=== PATIENT | male | born 1930 | race Caucasian/White ===

== ENCOUNTER 2017-09-18 18:15 | Inpatient (IN) | payer MEDICARE, OTHER ==
[~2017-09-18] VITALS: Ht 177.8 cm; Wt 52.0 kg
[~2017-09-18 18:15] MED LIST: ADV50250 IH; AMIT100T2 PO; ASPI81TA30 PO; CLOP75TA33 PO; NICO1PAT36 TP; PANT40TA4 PO; SIMV20TA5 PO; ZOLP10TA5 PO
[2017-09-18 19:08] LABS: BASOPHILS % (AUTO) 0 % (0-1); EOSINOPHILS % (AUTO) 0 % (0-6); HEMATOCRIT 33.1 % (42.0-52.0); HEMOGLOBIN 10.9 g/dl (14.0-17.9); LYMPHOCYTES # (AUTO) 0.4 X10'3 (1.1-4.8); LYMPHOCYTES % (AUTO) 1.6 % (21-51); MEAN CORPUSCULAR HEMOGLOBIN 27.5 PG (27.0-31.0); MEAN CORPUSCULAR VOLUME 83.6 FL (78-98); MEAN PLATELET VOLUME 6.9 FL (7.4-10.4); MONOCYTES # (AUTO) 0.9 X10'3 (0-0.9); NEUTROPHILS # (AUTO) 21.8 X10'3 (1.8-7.7); NEUTROPHILS % (AUTO) 94.4 % (42-75); PLATELET COUNT 386 X10'3 (140-440); RED BLOOD COUNT 3.96 X10'6 (4.70-6.10); RED CELL DISTRIBUTION WIDTH 15.8 % (11.5-14.5); WHITE BLOOD COUNT 23.1 X10'3 (4.5-11.0)
[2017-09-18 19:18] LABS: ALANINE AMINOTRANSFERASE 17 U/L (12-78); ALBUMIN 3.1 G/DL (3.4-5.0); ALBUMIN/GLOBULIN RATIO 0.6 (1.1-1.5); ALKALINE PHOSPHATASE 164 IU/L (46-116); ANION GAP 10 (8-16); ASPARTATE AMINO TRANSFERASE 18 U/L (10-37); BILIRUBIN,TOTAL 0.3 MG/DL (0.1-1.0); BLOOD UREA NITROGEN 23 MG/DL (7-18); BUN/CREATININE RATIO 18.3 (5.4-32.0); CALCIUM 8.8 MG/DL (8.5-10.1); CHLORIDE 102 MMOL/L (99-107); CREATININE 1.26 MG/DL (0.60-1.10); GLUCOSE 150 MG/DL (70-104); POTASSIUM 4.4 MMOL/L (3.5-5.1); SODIUM 137 MMOL/L (135-145); TOTAL CARBON DIOXIDE 25.3 MMOL/L (24-32); TOTAL PROTEIN 8.2 G/DL (6.4-8.2); eGFR 54 ML/MIN
[2017-09-18] MEDS ORDERED: normal saline 1000ML IV soln IV ONE (19:35)
[2017-09-18] MEDS ORDERED: ipratropium/albuterol 3ml nebule NEB ONE (19:35)
[2017-09-18] MEDS ORDERED: azithromycin/NS 500mg/250ml 250 ML IV ONE (19:35)
[2017-09-18] MEDS ORDERED: piperacillin/tazo 3.375gm/50ml 50 ML IV ONE (19:40)
[2017-09-18] MEDS ORDERED: vancomycin/NS 1 GM ADD-VANTAGE 250 ML X 1 DOSE IV ONE (19:45)
[2017-09-18] MEDS ORDERED: mag hydrox/Alum hydrox/simeth 30ml oral suspension PO PRN (21:05)
[2017-09-18] MEDS ORDERED: ondansetron/PF 4mg/2ml inj IV PRN (21:05)
[2017-09-18] MEDS ORDERED: acetaminophen 325mg tablet PO PRN (21:05)
[2017-09-18] MEDS ORDERED: magnesium hydroxide 30ml (MOM) UD suspension PO PRN (21:05)
[2017-09-18 22:22] LABS: ANISOCYTOSIS 1+; PLATELET ESTIMATE NORMAL; TOTAL CELLS COUNTED 100
[2017-09-18 23:00] VITALS: BP 103/44
[2017-09-19] MEDS ORDERED: piperacillin/tazo 3.375gm/50ml 50 ML IV ONE (02:17)
[2017-09-19] MEDS: piperacillin/tazo 3.375gm/50ml 50 ML IV SCH ×3 (02:29→15:37)
[2017-09-19] MEDS: ipratropium/albuterol 3ml nebule NEB SCH ×4 (02:59→21:14)
[2017-09-19 03:00] VITALS: BP 100/52
[2017-09-19 06:00] VITALS: BP 91/45
[2017-09-19 06:16] LABS: BASOPHILS % (AUTO) 0 % (0-1); EOSINOPHILS % (AUTO) 0 % (0-6); HEMATOCRIT 25.5 % (42.0-52.0); HEMOGLOBIN 8.4 g/dl (14.0-17.9); LYMPHOCYTES # (AUTO) 1.8 X10'3 (1.1-4.8); LYMPHOCYTES % (AUTO) 6.5 % (21-51); MEAN CORPUSCULAR HEMOGLOBIN 27.6 PG (27.0-31.0); MEAN CORPUSCULAR HGB CONC 33.1 % (33.0-36.5); MEAN CORPUSCULAR VOLUME 83.4 FL (78-98); MEAN PLATELET VOLUME 7.1 FL (7.4-10.4); MONOCYTES # (AUTO) 1.2 X10'3 (0-0.9); MONOCYTES % (AUTO) 4.3 % (2-12); NEUTROPHILS # (AUTO) 24.4 X10'3 (1.8-7.7); NEUTROPHILS % (AUTO) 89.2 % (42-75); PLATELET COUNT 321 X10'3 (140-440); RED BLOOD COUNT 3.05 X10'6 (4.70-6.10); RED CELL DISTRIBUTION WIDTH 15.9 % (11.5-14.5)
[2017-09-19 06:19] LABS: WHITE BLOOD COUNT 27.3 X10'3 (4.5-11.0)
[2017-09-19 06:36] LABS: ANISOCYTOSIS 1+; PLATELET ESTIMATE NORMAL; TOTAL CELLS COUNTED 100
[2017-09-19 06:42] LABS: ALANINE AMINOTRANSFERASE 13 U/L (12-78); ALBUMIN 2.1 G/DL (3.4-5.0); ALBUMIN/GLOBULIN RATIO 0.6 (1.1-1.5); ALKALINE PHOSPHATASE 113 IU/L (46-116); ANION GAP 8 (8-16); ASPARTATE AMINO TRANSFERASE 13 U/L (10-37); BILIRUBIN,TOTAL 0.4 MG/DL (0.1-1.0); BLOOD UREA NITROGEN 19 MG/DL (7-18); CALCIUM 8.1 MG/DL (8.5-10.1); CHLORIDE 109 MMOL/L (99-107); CREATININE 1.12 MG/DL (0.60-1.10); GLUCOSE 113 MG/DL (70-104); MAGNESIUM 1.9 MG/DL (1.5-2.4); PHOSPHORUS 3.4 MG/DL (2.3-4.5); POTASSIUM 4.4 MMOL/L (3.5-5.1); SODIUM 142 MMOL/L (135-145); TOTAL CARBON DIOXIDE 25.4 MMOL/L (24-32); TOTAL PROTEIN 5.9 G/DL (6.4-8.2); eGFR 62 ML/MIN
[2017-09-19] MEDS: clopidogrel 75mg tablet PO SCH (07:42)
[2017-09-19] MEDS: aspirin 81mg tab.chew PO SCH (07:42)
[2017-09-19] MEDS: amitryptiline 50mg tablet PO SCH (07:42)
[2017-09-19] MEDS: atorvastatin 10mg tablet PO SCH (07:42)
[2017-09-19] MEDS: heparin, porcine 5000 units/ml vial SQ SCH ×2 (07:43→21:27)
[2017-09-19] MEDS ORDERED: clopidogrel 75mg tablet PO SCH (08:00)
[2017-09-19] MEDS ORDERED: aspirin 81mg tab.chew PO SCH (08:30)
[2017-09-19] MEDS ORDERED: ipratropium/albuterol 3ml nebule NEB PRN (10:30)
[2017-09-19] MEDS ORDERED: magnesium/D5W IVPB 100 ML IV PRN (10:35)
[2017-09-19] MEDS ORDERED: potassium Cl 20 mEq SR tablet PO PRN ×2 (10:35)
[2017-09-19] MEDS ORDERED: magnesium 4gm in 100ml NS 100 ML IV PRN (10:35)
[2017-09-19] MEDS ORDERED: potassium Cl 40MEQ/NS 500ml 500 ML IV PRN ×2 (10:35)
[2017-09-19] MEDS ORDERED: magnesium Cl slow-release 64mg tablet PO PRN (10:35)
[2017-09-19 11:00] VITALS: BP 92/44
[2017-09-19 15:00] VITALS: BP 97/42
[2017-09-19 19:00] VITALS: BP 93/46
[2017-09-19] MEDS: vancomycin/NS 1 GM ADD-VANTAGE 250 ML IV SCH (21:26)
[2017-09-19 23:00] VITALS: BP 105/49
[2017-09-20] MEDS: piperacillin/tazo 3.375gm/50ml 50 ML IV SCH ×3 (00:24→16:02)
[2017-09-20] MEDS: ipratropium/albuterol 3ml nebule NEB SCH ×4 (02:50→20:09)
[2017-09-20 03:00] VITALS: BP 109/59
[2017-09-20 05:31] LABS: BASOPHILS % (AUTO) 0.1 % (0-1); EOSINOPHILS % (AUTO) 0.1 % (0-6); HEMOGLOBIN 8.1 g/dl (14.0-17.9); LYMPHOCYTES % (AUTO) 6.8 % (21-51); MEAN CORPUSCULAR HGB CONC 32.6 % (33.0-36.5); MEAN CORPUSCULAR VOLUME 82.9 FL (78-98); MEAN PLATELET VOLUME 7.1 FL (7.4-10.4); MONOCYTES # (AUTO) 0.8 X10'3 (0-0.9); MONOCYTES % (AUTO) 5.2 % (2-12); NEUTROPHILS # (AUTO) 13.3 X10'3 (1.8-7.7); NEUTROPHILS % (AUTO) 87.8 % (42-75); PLATELET COUNT 289 X10'3 (140-440); RED BLOOD COUNT 3.02 X10'6 (4.70-6.10); RED CELL DISTRIBUTION WIDTH 16.2 % (11.5-14.5); WHITE BLOOD COUNT 15.1 X10'3 (4.5-11.0)
[2017-09-20 05:47] LABS: ALANINE AMINOTRANSFERASE 10 U/L (12-78); ALBUMIN/GLOBULIN RATIO 0.5 (1.1-1.5); ALKALINE PHOSPHATASE 113 IU/L (46-116); ANION GAP 7 (8-16); ASPARTATE AMINO TRANSFERASE 12 U/L (10-37); BILIRUBIN,TOTAL 0.3 MG/DL (0.1-1.0); BLOOD UREA NITROGEN 19 MG/DL (7-18); BUN/CREATININE RATIO 18.4 (5.4-32.0); CALCIUM 8.3 MG/DL (8.5-10.1); CHLORIDE 109 MMOL/L (99-107); CREATININE 1.03 MG/DL (0.60-1.10); GLUCOSE 85 MG/DL (70-104); MAGNESIUM 2.1 MG/DL (1.5-2.4); PHOSPHORUS 2.6 MG/DL (2.3-4.5); POTASSIUM 4.1 MMOL/L (3.5-5.1); SODIUM 141 MMOL/L (135-145); TOTAL CARBON DIOXIDE 25.5 MMOL/L (24-32); TOTAL PROTEIN 6.1 G/DL (6.4-8.2); eGFR 68 ML/MIN
[2017-09-20 06:00] VITALS: BP 119/61
[2017-09-20] MEDS: atorvastatin 10mg tablet PO SCH (08:15)
[2017-09-20] MEDS: aspirin 81mg tab.chew PO SCH (08:15)
[2017-09-20] MEDS: amitryptiline 50mg tablet PO SCH (08:15)
[2017-09-20] MEDS: clopidogrel 75mg tablet PO SCH (08:15)
[2017-09-20] MEDS: heparin, porcine 5000 units/ml vial SQ SCH ×2 (08:15→20:03)
[2017-09-20 11:00] VITALS: BP 123/60
[2017-09-20 15:00] VITALS: BP 125/62
[2017-09-20 19:00] VITALS: BP 117/74
[2017-09-20] MEDS: vancomycin/NS 1 GM ADD-VANTAGE 250 ML IV SCH (19:45)
[2017-09-20 23:00] VITALS: BP 125/72
[2017-09-21] MEDS: piperacillin/tazo 3.375gm/50ml 50 ML IV SCH ×2 (00:29→07:21)
[2017-09-21] MEDS: ipratropium/albuterol 3ml nebule NEB SCH ×2 (02:31→07:57)
[2017-09-21 03:00] VITALS: BP 132/73
[2017-09-21 06:00] VITALS: BP 128/78
[2017-09-21 06:09] LABS: BASOPHILS % (AUTO) 0.1 % (0-1); EOSINOPHILS % (AUTO) 0 % (0-6); HEMATOCRIT 26.7 % (42.0-52.0); HEMOGLOBIN 8.8 g/dl (14.0-17.9); LYMPHOCYTES # (AUTO) 1.1 X10'3 (1.1-4.8); LYMPHOCYTES % (AUTO) 10.4 % (21-51); MEAN CORPUSCULAR HEMOGLOBIN 27.2 PG (27.0-31.0); MEAN CORPUSCULAR HGB CONC 32.7 % (33.0-36.5); MEAN CORPUSCULAR VOLUME 83.1 FL (78-98); MEAN PLATELET VOLUME 7.2 FL (7.4-10.4); MONOCYTES # (AUTO) 0.5 X10'3 (0-0.9); MONOCYTES % (AUTO) 4.8 % (2-12); NEUTROPHILS # (AUTO) 9.2 X10'3 (1.8-7.7); NEUTROPHILS % (AUTO) 84.7 % (42-75); PLATELET COUNT 319 X10'3 (140-440); RED BLOOD COUNT 3.22 X10'6 (4.70-6.10); RED CELL DISTRIBUTION WIDTH 16.2 % (11.5-14.5); WHITE BLOOD COUNT 10.9 X10'3 (4.5-11.0)
[2017-09-21 06:24] LABS: ALANINE AMINOTRANSFERASE 10 U/L (12-78); ALBUMIN 2.1 G/DL (3.4-5.0); ALBUMIN/GLOBULIN RATIO 0.5 (1.1-1.5); ALKALINE PHOSPHATASE 124 IU/L (46-116); ANION GAP 7 (8-16); ASPARTATE AMINO TRANSFERASE 15 U/L (10-37); BILIRUBIN,TOTAL 0.3 MG/DL (0.1-1.0); BLOOD UREA NITROGEN 16 MG/DL (7-18); CALCIUM 8.6 MG/DL (8.5-10.1); CHLORIDE 105 MMOL/L (99-107); CREATININE 1.07 MG/DL (0.60-1.10); GLUCOSE 84 MG/DL (70-104); MAGNESIUM 1.9 MG/DL (1.5-2.4); PHOSPHORUS 2.6 MG/DL (2.3-4.5); POTASSIUM 4.2 MMOL/L (3.5-5.1); SODIUM 138 MMOL/L (135-145); TOTAL CARBON DIOXIDE 26.3 MMOL/L (24-32); TOTAL PROTEIN 6.6 G/DL (6.4-8.2); eGFR 65 ML/MIN
[2017-09-21] MEDS: amitryptiline 50mg tablet PO SCH (07:20)
[2017-09-21] MEDS: clopidogrel 75mg tablet PO SCH (07:20)
[2017-09-21] MEDS: atorvastatin 10mg tablet PO SCH (07:20)
[2017-09-21] MEDS: heparin, porcine 5000 units/ml vial SQ SCH (07:22)
[2017-09-21] MEDS: aspirin 81mg tab.chew PO SCH (08:00)
[2017-09-21 11:00] VITALS: BP 117/60
[2017-09-21] MEDS ORDERED: ALBU8.5H8 INH (14:00)
[2017-09-21] MEDS ORDERED: AMOX-419 PO (14:01)
[2017-09-21] MEDS ORDERED: AZIT500T5 PO ×2 (14:02→14:09)
[2017-09-21] MEDS ORDERED: VANCOMYCIN LEVEL IV ONE (19:30)
== END 2017-09-21 14:40 | disposition home health service (06) | DRG 871 ==
LOC: ER 18:16 → ED HOLD 21:10 → PCU 3S 22:21
PROVIDERS: ADMIT Emergency Medicine; ATTEND Family Medicine
DX: A41.9 Sepsis, unspecified organism (principal); J18.1 Lobar pneumonia, unspecified organism; N17.9 Acute kidney failure, unspecified; J44.0 Chronic obstructive pulmonary disease with (acute) lower respiratory infection; R64 Cachexia; Z68.1 Body mass index [BMI] 19.9 or less, adult; N18.9 Chronic kidney disease, unspecified; E86.0 Dehydration; I25.10 Atherosclerotic heart disease of native coronary artery without angina pectoris; F17.200 Nicotine dependence, unspecified, uncomplicated; I25.2 Old myocardial infarction; Z90.2 Acquired absence of lung [part of]; Z79.02 Long term (current) use of antithrombotics/antiplatelets; Z79.82 Long term (current) use of aspirin; Z85.118 Personal history of other malignant neoplasm of bronchus and lung
CPT/HCPCS: 36415; 71046; 80053; 83605; 83735; 84100; 84145; 85025; 87040; 87070; 87088; 94640; 94760; 97110; 97116; 97161; J0456; J1644; J2543; J3370; J7030

== ENCOUNTER 2017-10-19 16:29 | Inpatient (IN) | payer MEDICARE, OTHER ==
[~2017-10-19] VITALS: Ht 604 cm; Wt 52.5 kg
[~2017-10-19 16:29] MED LIST changes: +ALBU8.5H8 INH; +AMOX-419 PO; +AZIT500T5 PO; -ZOLP10TA5 PO
[2017-10-19] MEDS ORDERED: ipratropium/albuterol 3ml nebule NEB ONE (16:55)
[2017-10-19] MEDS ORDERED: normal saline 1000ML IV soln IV ONE (16:55)
[2017-10-19] MEDS ORDERED: methylPREDNISolone sod succ 125mg/2ml vial IV ONE (17:00)
[2017-10-19 17:14] LABS: BASOPHILS % (AUTO) 0 % (0-1); EOSINOPHILS % (AUTO) 0 % (0-6); HEMATOCRIT 28.9 % (42.0-52.0); HEMOGLOBIN 9.4 g/dl (14.0-17.9); LYMPHOCYTES # (AUTO) 0.9 X10'3 (1.1-4.8); LYMPHOCYTES % (AUTO) 4.9 % (21-51); MEAN CORPUSCULAR HEMOGLOBIN 26.7 PG (27.0-31.0); MEAN CORPUSCULAR HGB CONC 32.6 % (33.0-36.5); MEAN CORPUSCULAR VOLUME 81.9 FL (78-98); MEAN PLATELET VOLUME 6.7 FL (7.4-10.4); MONOCYTES # (AUTO) 1.1 X10'3 (0-0.9); MONOCYTES % (AUTO) 6.1 % (2-12); NEUTROPHILS # (AUTO) 16.8 X10'3 (1.8-7.7); PLATELET COUNT 479 X10'3 (140-440); RED BLOOD COUNT 3.53 X10'6 (4.70-6.10); RED CELL DISTRIBUTION WIDTH 17.2 % (11.5-14.5); WHITE BLOOD COUNT 18.8 X10'3 (4.5-11.0)
[2017-10-19 17:26] LABS: ABG BASE EXCESS -1.6 mmol/L (-2.0-3.0); ABG HCO3 22.3 mmol/L (22.0-26.0); ABG OXYGEN SATURATION 93.4 % (95-98); ABG PCO2 (T) 33.9 mmHg (35.0-48.0); ABG PH (T) 7.435 (7.350-7.450); ABG PO2 (T) 70.8 mmHg (83-108); ALLEN'S TEST Positive; FCOHb 1.5 % (0.5-1.5); FLOW 2 L/min; RESPIRATORY RATE (OBSERVED) 16 b/min; TOTAL HEMOGLOBIN 9.4 G/dl (14.0-18.0)
[2017-10-19 17:30] LABS: ALANINE AMINOTRANSFERASE 15 U/L (12-78); ALBUMIN 2.5 G/DL (3.4-5.0); ALBUMIN/GLOBULIN RATIO 0.4 (1.1-1.5); ALKALINE PHOSPHATASE 120 IU/L (46-116); ANION GAP 11 (8-16); ASPARTATE AMINO TRANSFERASE 14 U/L (10-37); BILIRUBIN,TOTAL 0.3 MG/DL (0.1-1.0); BLOOD UREA NITROGEN 24 MG/DL (7-18); BUN/CREATININE RATIO 14.8 (5.4-32.0); CALCIUM 9.1 MG/DL (8.5-10.1); CHLORIDE 102 MMOL/L (99-107); CREATININE 1.62 MG/DL (0.60-1.10); GLUCOSE 149 MG/DL (70-104); MAGNESIUM 2.1 MG/DL (1.5-2.4); SODIUM 138 MMOL/L (135-145); TOTAL CARBON DIOXIDE 24.7 MMOL/L (24-32); TOTAL PROTEIN 8.1 G/DL (6.4-8.2); eGFR 41 ML/MIN
[2017-10-19 17:31] LABS: POTASSIUM 4.7 MMOL/L (3.5-5.1)
[2017-10-19] MEDS ORDERED: azithromycin/NS 500mg/250ml 250 ML IV ONE (17:35)
[2017-10-19] MEDS ORDERED: CefTRIAXone 2gm/D5W 50ml 50 ML IV ONE (17:35)
[2017-10-19] MEDS ORDERED: normal saline 1000ml 1,000 ML IV SCH (18:02)
[2017-10-19] MEDS ORDERED: potassium Cl 40MEQ/NS 500ml 500 ML IV PRN ×2 (18:05)
[2017-10-19] MEDS ORDERED: magnesium 4gm in 100ml NS 100 ML IV PRN (18:05)
[2017-10-19] MEDS ORDERED: magnesium hydroxide 30ml (MOM) UD suspension PO PRN (18:05)
[2017-10-19] MEDS ORDERED: HYDROcodone/acetaminophen 5mg/325mg tablet PO PRN (18:05)
[2017-10-19] MEDS ORDERED: HYDROmorphone inj. 0.5 MG/0.5 ML DISP.SYRIN IV PRN ×2 (18:05)
[2017-10-19] MEDS ORDERED: mag hydrox/Alum hydrox/simeth 30ml oral suspension PO PRN (18:05)
[2017-10-19] MEDS ORDERED: potassium Cl 20 mEq SR tablet PO PRN ×2 (18:05)
[2017-10-19] MEDS ORDERED: ondansetron/PF 4mg/2ml inj IV PRN (18:05)
[2017-10-19] MEDS ORDERED: magnesium 1gm/100ml D5W IVPB 100 ML IV PRN (18:05)
[2017-10-19] MEDS: K and/or MAG REPLACEMENT MC SCH (18:05)
[2017-10-19] MEDS ORDERED: HYDROcodone/acetaminophen 10/325mg tab PO PRN (18:05)
[2017-10-19] MEDS ORDERED: magnesium Cl slow-release 64mg tablet PO PRN (18:05)
[2017-10-19] MEDS ORDERED: ipratropium/albuterol 3ml nebule NEB PRN (18:05)
[2017-10-19] MEDS ORDERED: acetaminophen 325mg tablet PO PRN ×2 (18:05)
[2017-10-19] MEDS: ipratropium/albuterol 3ml nebule NEB SCH ×2 (19:00→23:26)
[2017-10-19] MEDS: methylPREDNISolone sod succ 125mg/2ml vial IV SCH (19:38)
[2017-10-19] MEDS: heparin, porcine 5000 units/ml vial SQ SCH (19:39)
[2017-10-19 20:00] VITALS: BP 122/66
[2017-10-19] MEDS ORDERED: temazepam 15mg capsule PO PRN (21:00)
[2017-10-19] MEDS ORDERED: albuterol 2.5 MG/3 ML nebule NEB SCH (21:00)
[2017-10-19] MEDS: atorvastatin 10mg tablet PO SCH (21:54)
[2017-10-19 23:00] VITALS: BP 119/58
[2017-10-19] MEDS: budesonide 0.5mg/2ml UD nebule IH SCH (23:26)
[2017-10-20] MEDS: methylPREDNISolone sod succ 125mg/2ml vial IV SCH ×4 (01:39→20:28)
[2017-10-20 03:00] VITALS: BP 98/52
[2017-10-20 05:05] LABS: BASOPHILS % (AUTO) 0 % (0-1); EOSINOPHILS # (AUTO) 0.2 X10'3 (0-0.9); HEMATOCRIT 23.1 % (42.0-52.0); HEMOGLOBIN 7.5 g/dl (14.0-17.9); LYMPHOCYTES # (AUTO) 0.3 X10'3 (1.1-4.8); MEAN CORPUSCULAR HEMOGLOBIN 26.5 PG (27.0-31.0); MEAN CORPUSCULAR HGB CONC 32.5 % (33.0-36.5); MEAN CORPUSCULAR VOLUME 81.7 FL (78-98); MONOCYTES % (AUTO) 0.3 % (2-12); NEUTROPHILS # (AUTO) 10.9 X10'3 (1.8-7.7); NEUTROPHILS % (AUTO) 94.7 % (42-75); PLATELET COUNT 334 X10'3 (140-440); RED BLOOD COUNT 2.82 X10'6 (4.70-6.10); RED CELL DISTRIBUTION WIDTH 16.7 % (11.5-14.5); WHITE BLOOD COUNT 11.5 X10'3 (4.5-11.0)
[2017-10-20 05:27] LABS: ANION GAP 6 (8-16); BLOOD UREA NITROGEN 26 MG/DL (7-18); CALCIUM 8.7 MG/DL (8.5-10.1); CHLORIDE 107 MMOL/L (99-107); GLUCOSE 182 MG/DL (70-104); MAGNESIUM 1.9 MG/DL (1.5-2.4); POTASSIUM 4.4 MMOL/L (3.5-5.1); SODIUM 138 MMOL/L (135-145); eGFR 52 ML/MIN
[2017-10-20 06:00] VITALS: BP 122/62
[2017-10-20] MEDS: budesonide 0.5mg/2ml UD nebule IH SCH ×2 (06:42→19:30)
[2017-10-20 07:16] LABS: HEMATOCRIT 24.3 % (42.0-52.0); HEMOGLOBIN 7.8 g/dl (14.0-17.9); MEAN CORPUSCULAR HEMOGLOBIN 26.4 PG (27.0-31.0); MEAN CORPUSCULAR HGB CONC 32.1 % (33.0-36.5); MEAN CORPUSCULAR VOLUME 82.2 FL (78-98); MEAN PLATELET VOLUME 6.9 FL (7.4-10.4); PLATELET COUNT 349 X10'3 (140-440); RED BLOOD COUNT 2.96 X10'6 (4.70-6.10); RED CELL DISTRIBUTION WIDTH 17.4 % (11.5-14.5); WHITE BLOOD COUNT 10.2 X10'3 (4.5-11.0)
[2017-10-20] MEDS: K and/or MAG REPLACEMENT MC SCH (08:00)
[2017-10-20] MEDS: amitriptyline 25mg tablet PO SCH (08:01)
[2017-10-20] MEDS: clopidogrel 75mg tablet PO SCH (08:01)
[2017-10-20] MEDS: CefTRIAXone/D5W-Rocephin 1gm 50 ML IV SCH (08:01)
[2017-10-20] MEDS: aspirin 81mg tab.chew PO SCH (08:01)
[2017-10-20] MEDS: pantoprazole 40mg Tablet.DR PO SCH (08:01)
[2017-10-20] MEDS: azithromycin/NS 500mg/250ml 250 ML IV SCH (08:01)
[2017-10-20] MEDS: heparin, porcine 5000 units/ml vial SQ SCH ×2 (08:02→20:28)
[2017-10-20] MEDS: nicotine 21mg patch - 24 hr TD SCH (08:02)
[2017-10-20] MEDS: ipratropium/albuterol 3ml nebule NEB SCH ×4 (10:32→23:50)
[2017-10-20 11:00] VITALS: BP 113/49
[2017-10-20] MEDS: LACTOSE-FREE FOOD (BOOST BREEZE) 237ML PO SCH ×2 (13:00→18:00)
[2017-10-20 15:00] VITALS: BP 96/49
[2017-10-20 18:00] VITALS: BP 104/50
[2017-10-20] MEDS: atorvastatin 10mg tablet PO SCH (20:27)
[2017-10-20] MEDS: lactobacillus rhamnosus 10,000 MMU CELLS/CAPSULE PO SCH (20:27)
[2017-10-20] MEDS: guaiFENesin ER 600mg tablet PO SCH (20:28)
[2017-10-20 22:15] VITALS: BP 129/62
[2017-10-21] MEDS: methylPREDNISolone sod succ 125mg/2ml vial IV SCH ×4 (02:25→21:02)
[2017-10-21] MEDS: ipratropium/albuterol 3ml nebule NEB SCH ×6 (03:00→23:00)
[2017-10-21 05:33] LABS: BASOPHILS % (AUTO) 0 % (0-1); EOSINOPHILS % (AUTO) 0 % (0-6); HEMOGLOBIN 7.5 g/dl (14.0-17.9); LYMPHOCYTES # (AUTO) 0.4 X10'3 (1.1-4.8); LYMPHOCYTES % (AUTO) 2.1 % (21-51); MEAN CORPUSCULAR HEMOGLOBIN 26.5 PG (27.0-31.0); MEAN CORPUSCULAR HGB CONC 32.5 % (33.0-36.5); MEAN CORPUSCULAR VOLUME 81.5 FL (78-98); MONOCYTES # (AUTO) 0.2 X10'3 (0-0.9); MONOCYTES % (AUTO) 1.1 % (2-12); NEUTROPHILS # (AUTO) 17.5 X10'3 (1.8-7.7); NEUTROPHILS % (AUTO) 96.8 % (42-75); PLATELET COUNT 374 X10'3 (140-440); RED BLOOD COUNT 2.83 X10'6 (4.70-6.10); WHITE BLOOD COUNT 18.1 X10'3 (4.5-11.0)
[2017-10-21 05:58] LABS: ALBUMIN 2.1 G/DL (3.4-5.0); ANION GAP 10 (8-16); BLOOD UREA NITROGEN 35 MG/DL (7-18); BUN/CREATININE RATIO 31.3 (5.4-32.0); CALCIUM 8.8 MG/DL (8.5-10.1); CHLORIDE 107 MMOL/L (99-107); CREATININE 1.12 MG/DL (0.60-1.10); GLUCOSE 156 MG/DL (70-104); MAGNESIUM 1.9 MG/DL (1.5-2.4); POTASSIUM 4.2 MMOL/L (3.5-5.1); SODIUM 141 MMOL/L (135-145); TOTAL CARBON DIOXIDE 24.5 MMOL/L (24-32); eGFR 62 ML/MIN
[2017-10-21 06:00] VITALS: BP 137/65
[2017-10-21] MEDS: pantoprazole 40mg Tablet.DR PO SCH (07:48)
[2017-10-21] MEDS: CefTRIAXone/D5W-Rocephin 1gm 50 ML IV SCH (07:49)
[2017-10-21] MEDS: clopidogrel 75mg tablet PO SCH (07:52)
[2017-10-21] MEDS: azithromycin/NS 500mg/250ml 250 ML IV SCH (07:52)
[2017-10-21] MEDS: heparin, porcine 5000 units/ml vial SQ SCH ×2 (07:53→21:02)
[2017-10-21] MEDS: guaiFENesin ER 600mg tablet PO SCH ×2 (07:53→21:01)
[2017-10-21] MEDS: lactobacillus rhamnosus 10,000 MMU CELLS/CAPSULE PO SCH ×2 (07:53→21:02)
[2017-10-21] MEDS: amitriptyline 25mg tablet PO SCH (07:53)
[2017-10-21] MEDS: aspirin 81mg tab.chew PO SCH (07:54)
[2017-10-21] MEDS: nicotine 21mg patch - 24 hr TD SCH (07:54)
[2017-10-21] MEDS: LACTOSE-FREE FOOD (BOOST BREEZE) 237ML PO SCH ×3 (08:00→18:00)
[2017-10-21] MEDS: K and/or MAG REPLACEMENT MC SCH (08:00)
[2017-10-21] MEDS: budesonide 0.5mg/2ml UD nebule IH SCH ×2 (09:00→19:53)
[2017-10-21 11:00] VITALS: BP 100/51
[2017-10-21 13:26] LABS: BASOPHILS % (AUTO) 0 % (0-1); EOSINOPHILS # (AUTO) 0.3 X10'3 (0-0.9); EOSINOPHILS % (AUTO) 1.7 % (0-6); HEMATOCRIT 22.1 % (42.0-52.0); HEMOGLOBIN 7.2 g/dl (14.0-17.9); LYMPHOCYTES # (AUTO) 0.4 X10'3 (1.1-4.8); LYMPHOCYTES % (AUTO) 2.4 % (21-51); MEAN CORPUSCULAR HEMOGLOBIN 26.4 PG (27.0-31.0); MEAN CORPUSCULAR HGB CONC 32.3 % (33.0-36.5); MEAN CORPUSCULAR VOLUME 81.7 FL (78-98); MEAN PLATELET VOLUME 6.9 FL (7.4-10.4); MONOCYTES # (AUTO) 0.2 X10'3 (0-0.9); MONOCYTES % (AUTO) 1.5 % (2-12); NEUTROPHILS # (AUTO) 14.8 X10'3 (1.8-7.7); NEUTROPHILS % (AUTO) 94.4 % (42-75); PLATELET COUNT 357 X10'3 (140-440); RED BLOOD COUNT 2.71 X10'6 (4.70-6.10); RED CELL DISTRIBUTION WIDTH 17.3 % (11.5-14.5); WHITE BLOOD COUNT 15.7 X10'3 (4.5-11.0)
[2017-10-21 18:00] VITALS: BP 106/52
[2017-10-21 19:06] LABS: OCCULT BLOOD STOOL NEGATIVE (Neg)
[2017-10-21] MEDS: atorvastatin 10mg tablet PO SCH (21:02)
[2017-10-21 21:03] LABS: BASOPHILS % (AUTO) 0 % (0-1); EOSINOPHILS # (AUTO) 0.2 X10'3 (0-0.9); EOSINOPHILS % (AUTO) 1.4 % (0-6); HEMATOCRIT 25.2 % (42.0-52.0); HEMOGLOBIN 8.1 g/dl (14.0-17.9); LYMPHOCYTES # (AUTO) 0.3 X10'3 (1.1-4.8); LYMPHOCYTES % (AUTO) 1.8 % (21-51); MEAN CORPUSCULAR HEMOGLOBIN 26.4 PG (27.0-31.0); MEAN CORPUSCULAR VOLUME 82.5 FL (78-98); MONOCYTES # (AUTO) 0.2 X10'3 (0-0.9); MONOCYTES % (AUTO) 1.1 % (2-12); NEUTROPHILS % (AUTO) 95.7 % (42-75); PLATELET COUNT 396 X10'3 (140-440); RED BLOOD COUNT 3.06 X10'6 (4.70-6.10); WHITE BLOOD COUNT 15.6 X10'3 (4.5-11.0)
[2017-10-21 22:00] VITALS: BP 124/57
[2017-10-22] MEDS: methylPREDNISolone sod succ 125mg/2ml vial IV SCH ×2 (02:02→08:12)
[2017-10-22] MEDS: ipratropium/albuterol 3ml nebule NEB SCH ×3 (03:00→12:48)
[2017-10-22 05:48] LABS: BASOPHILS % (AUTO) 0 % (0-1); EOSINOPHILS # (AUTO) 0.1 X10'3 (0-0.9); EOSINOPHILS % (AUTO) 0.6 % (0-6); HEMATOCRIT 24.3 % (42.0-52.0); HEMOGLOBIN 7.9 g/dl (14.0-17.9); LYMPHOCYTES # (AUTO) 0.4 X10'3 (1.1-4.8); LYMPHOCYTES % (AUTO) 2.5 % (21-51); MEAN CORPUSCULAR HEMOGLOBIN 26.6 PG (27.0-31.0); MEAN CORPUSCULAR HGB CONC 32.8 % (33.0-36.5); MEAN CORPUSCULAR VOLUME 81.1 FL (78-98); MEAN PLATELET VOLUME 6.9 FL (7.4-10.4); MONOCYTES # (AUTO) 0.1 X10'3 (0-0.9); NEUTROPHILS # (AUTO) 13.3 X10'3 (1.8-7.7); NEUTROPHILS % (AUTO) 95.9 % (42-75); PLATELET COUNT 373 X10'3 (140-440); RED BLOOD COUNT 2.99 X10'6 (4.70-6.10); WHITE BLOOD COUNT 13.8 X10'3 (4.5-11.0)
[2017-10-22 06:00] VITALS: BP 132/72
[2017-10-22 06:05] LABS: ANION GAP 8 (8-16); BLOOD UREA NITROGEN 36 MG/DL (7-18); BUN/CREATININE RATIO 31.6 (5.4-32.0); CALCIUM 8.7 MG/DL (8.5-10.1); CHLORIDE 108 MMOL/L (99-107); CREATININE 1.14 MG/DL (0.60-1.10); GLUCOSE 139 MG/DL (70-104); MAGNESIUM 1.9 MG/DL (1.5-2.4); POTASSIUM 4.2 MMOL/L (3.5-5.1); SODIUM 141 MMOL/L (135-145); TOTAL CARBON DIOXIDE 25.1 MMOL/L (24-32); eGFR 61 ML/MIN
[2017-10-22] MEDS: heparin, porcine 5000 units/ml vial SQ SCH (08:00)
[2017-10-22] MEDS: K and/or MAG REPLACEMENT MC SCH (08:00)
[2017-10-22] MEDS: budesonide 0.5mg/2ml UD nebule IH SCH (08:07)
[2017-10-22] MEDS: CefTRIAXone/D5W-Rocephin 1gm 50 ML IV SCH (08:10)
[2017-10-22] MEDS: azithromycin/NS 500mg/250ml 250 ML IV SCH (08:10)
[2017-10-22] MEDS: lactobacillus rhamnosus 10,000 MMU CELLS/CAPSULE PO SCH (08:11)
[2017-10-22] MEDS: aspirin 81mg tab.chew PO SCH (08:11)
[2017-10-22] MEDS: nicotine 21mg patch - 24 hr TD SCH (08:11)
[2017-10-22] MEDS: pantoprazole 40mg Tablet.DR PO SCH (08:11)
[2017-10-22] MEDS: guaiFENesin ER 600mg tablet PO SCH (08:12)
[2017-10-22] MEDS: clopidogrel 75mg tablet PO SCH (08:12)
[2017-10-22] MEDS: LACTOSE-FREE FOOD (BOOST BREEZE) 237ML PO SCH (08:13)
[2017-10-22] MEDS ORDERED: predniSONE 20 mg tablet PO SCH (08:30)
[2017-10-22] MEDS ORDERED: LEVO500T2 PO (12:26)
[2017-10-22] MEDS ORDERED: PRED10TA23 PO (12:26)
[2017-10-22] MEDS ORDERED: LACTOSE-FREE FOOD 237ML (BOOST) PO SCH (13:00)
[2017-10-22 13:11] LABS: BASOPHILS % (AUTO) 0 % (0-1); EOSINOPHILS # (AUTO) 0.1 X10'3 (0-0.9); HEMATOCRIT 26.4 % (42.0-52.0); HEMOGLOBIN 8.4 g/dl (14.0-17.9); LYMPHOCYTES # (AUTO) 0.4 X10'3 (1.1-4.8); LYMPHOCYTES % (AUTO) 2.8 % (21-51); MEAN CORPUSCULAR HEMOGLOBIN 26.1 PG (27.0-31.0); MEAN CORPUSCULAR VOLUME 81.5 FL (78-98); MONOCYTES # (AUTO) 0.4 X10'3 (0-0.9); NEUTROPHILS % (AUTO) 93.2 % (42-75); PLATELET COUNT 397 X10'3 (140-440); RED BLOOD COUNT 3.24 X10'6 (4.70-6.10); RED CELL DISTRIBUTION WIDTH 17.1 % (11.5-14.5)
[2017-10-22 15:26] VITALS: BP 132/70
[2017-10-22] MEDS ORDERED: amitriptyline 25mg tablet PO SCH (21:00)
[2017-10-23] MEDS ORDERED: predniSONE 20 mg tablet PO SCH (08:30)
== END 2017-10-22 16:32 | disposition home health service (06) | DRG 871 ==
LOC: ER 16:30 → ED HOLD 18:02 → EDBEDREQ 19:18 → CMPBEDREQ 20:03 → PCU 3S 20:14 → ORTHO 4S 10-20 22:55
PROVIDERS: ADMIT Family Medicine; ATTEND Internal Medicine
DX: A41.9 Sepsis, unspecified organism (principal); J96.21 Acute and chronic respiratory failure with hypoxia; J18.9 Pneumonia, unspecified organism; J44.0 Chronic obstructive pulmonary disease with (acute) lower respiratory infection; J44.1 Chronic obstructive pulmonary disease with (acute) exacerbation; N17.9 Acute kidney failure, unspecified; E78.00 Pure hypercholesterolemia, unspecified; D63.8 Anemia in other chronic diseases classified elsewhere; N18.9 Chronic kidney disease, unspecified; E78.5 Hyperlipidemia, unspecified; G89.29 Other chronic pain; R63.4 Abnormal weight loss; I25.10 Atherosclerotic heart disease of native coronary artery without angina pectoris; F17.200 Nicotine dependence, unspecified, uncomplicated; I25.2 Old myocardial infarction; Z90.2 Acquired absence of lung [part of]; Z99.81 Dependence on supplemental oxygen; Z98.61 Coronary angioplasty status; Z79.899 Other long term (current) drug therapy; Z79.82 Long term (current) use of aspirin; Z79.52 Long term (current) use of systemic steroids; Z79.02 Long term (current) use of antithrombotics/antiplatelets; Z85.118 Personal history of other malignant neoplasm of bronchus and lung
CPT/HCPCS: 36415; 36600; 71045; 80048; 80053; 82272; 82803; 82948; 83605; 83735; 84145; 85018; 85025; 85027; 86885; 86900; 86901; 87040; 87070; 93005; 94640; 94760; 96365; 96375; 97110; 97116; 97161; 97530; 99285; A4315; A6213; J0456; J0696; J1644; J2930; J7030; J7626